=== PATIENT | male | born 1975 ===

== ENCOUNTER 2016-08-10 08:37 | Emergency (ER) | payer SELFPAY ==
--- NOTE | 2016-08-16 15:44 | ER ---
ADMIT: 08/10/2016 RM/LOC: ER [facility] MR#: [id number] [id number] [place], [place] [id number] JESSICA PEREZ [address], [place] [address] Emergency Room Report SEX: M AGE: 41 : 1975 DATE: 08/10/2016 HISTORY OF PRESENT ILLNESS: City call. The patient presents to the emergency room with bloody stool he says he noticed it a couple of days ago. No pain whatsoever. No weakness. He works at [employer]. No diarrhea, no constipation. He says that when he goes to the bathroom, he feels like he needs to poop a little longer than normal. He saw blood in the stool and the water. PAST MEDICAL HISTORY: Asthma, jaw fracture, biceps rupture. MEDICATIONS: He takes: 1. Testosterone. 2. Nebulizer treatments. ALLERGIES: HE IS ALLERGIC TO PENICILLIN AND ASPIRIN. SOCIAL HISTORY: He does meth occasionally. He is not a smoker and alcohol occasionally. PHYSICAL EXAMINATION: VITAL SIGNS: Within normal limits. He is afebrile. Mildly anxious. ABDOMEN: Upon examination, there is no abdominal discomfort. Soft and nontender. SKIN: Good color and intact. EXTREMITIES: Well perfused. NEUROLOGIC: Oriented x4. BACK: Mild muscular spasms most likely from work. RECTAL: Hemoccult negative. However, there was no tenderness, but there was internal hemorrhoids present. It is palpated, but negative Hemoccult and no fecal impaction with good sphincter tone. EMERGENCY DEPARTMENT COURSE: He was given Bentyl and also Flexeril for his back. I encouraged strongly to go see a primary provider. I gave him hydrocortisone cream for hemorrhoids. CHALINO Blankenship / Robbie Horner MD / kelli JOB #: [id number] CC: Robbie Horner MD, Attending Physician Gerda Gonsalves MD, Family Physician
== END 2016-08-10 10:45 | disposition home or self-care (01) ==
LOC: ER 08:37
DX: K64.8 Other hemorrhoids (principal); M62.830 Muscle spasm of back; J45.909 Unspecified asthma, uncomplicated; Z98.890 Other specified postprocedural states; Z79.899 Other long term (current) drug therapy; Z88.0 Allergy status to penicillin; Z88.6 Allergy status to analgesic agent; Z87.81 Personal history of (healed) traumatic fracture